=== PATIENT | female | born 2000 | race Two or more races ===

== ENCOUNTER 2024-11-20 14:48 | Emergency (ER) | payer BC ==
[~2024-11-20] VITALS: Ht 162.6 cm; Wt 54.4 kg
[2024-11-20 14:58] VITALS: BP 107/70; TEMP 98; O2SAT 98
== END 2024-11-20 15:45 | disposition home or self-care (01) ==
LOC: ER 14:48
DX: S62.667A Nondisplaced fracture of distal phalanx of left little finger, initial encounter for closed fracture (principal); Z60.2 Problems related to living alone; W18.39XA Other fall on same level, initial encounter; Y93.K1 Activity, walking an animal; Y92.89 Other specified places as the place of occurrence of the external cause; Y99.8 Other external cause status
CPT/HCPCS: 73130-TC